=== PATIENT | female | born 1975 | race American Indian/Alaskan Native ===

== ENCOUNTER 2022-04-28 13:04 | Emergency (ER) | payer BC ==
[~2022-04-28] VITALS: Ht 172.7 cm; Wt 84.5 kg
[~2022-04-28 13:04] MED LIST: HYDR-569 PO; ONDA8TAB9 PO
[2022-04-28 14:00] VITALS: BP 102/60
--- NOTE | 2022-04-28 14:00 | NUR ---
Surgical site on R lower quadrant is oozing copious acharya fluid. Area is red and warm.
--- NOTE | 2022-04-28 14:20 | NUR ---
Wound culture and blood culture sent.
[2022-04-28 14:29] LABS: BASOPHILS % (AUTO) 0.6 % (0-1); EOSINOPHILS # (AUTO) 0.1 X10'3 (0-0.9); EOSINOPHILS % (AUTO) 1.2 % (0-6); HEMATOCRIT 23.3 % (35.0-45.0); HEMOGLOBIN 7.8 g/dl (12.0-16.0); LYMPHOCYTES % (AUTO) 13.8 % (21-51); MEAN CORPUSCULAR HEMOGLOBIN 29.4 PG (27.0-31.0); MEAN CORPUSCULAR HGB CONC 33.4 g/dL (33.0-36.5); MEAN CORPUSCULAR VOLUME 87.8 FL (78-98); MONOCYTES # (AUTO) 0.4 X10'3 (0-0.9); MONOCYTES % (AUTO) 5.5 % (2-12); NEUTROPHILS # (AUTO) 5.8 X10'3 (1.8-7.7); NEUTROPHILS % (AUTO) 78.9 % (42-75); PLATELET COUNT 412 X10'3 (140-440); RED BLOOD COUNT 2.65 X10'6 (4.20-5.60); RED CELL DISTRIBUTION WIDTH 14.4 % (11.5-14.5); WHITE BLOOD COUNT 7.3 X10'3 (4.5-11.0)
[2022-04-28 14:40] LABS: ALANINE AMINOTRANSFERASE 18 U/L (12-78); ALBUMIN 2.4 G/DL (3.4-5.0); ALBUMIN/GLOBULIN RATIO 0.6 (1.1-1.5); ALKALINE PHOSPHATASE 77 IU/L (46-116); ANION GAP 5 (8-16); ASPARTATE AMINO TRANSFERASE 15 U/L (10-37); BILIRUBIN,TOTAL 0.3 MG/DL (0.1-1.0); BLOOD UREA NITROGEN 11 MG/DL (7-18); BUN/CREATININE RATIO 19.6 (6.6-38.0); CALCIUM 8.7 MG/DL (8.5-10.1); CHLORIDE 102 MMOL/L (99-107); CREATININE 0.56 MG/DL (0.40-0.90); GLUCOSE 98 MG/DL (70-104); POTASSIUM 3.5 MMOL/L (3.5-5.1); SODIUM 137 MMOL/L (135-145); TOTAL CARBON DIOXIDE 29.8 MMOL/L (24-32); TOTAL PROTEIN 6.4 G/DL (6.4-8.2); eGFR > 90 ML/MIN
[2022-04-28 15:32] LABS: CLARITY,URINE CLEAR (Clear); COLOR,URINE YELLOW (Yellow); GLUCOSE, URINE NEGATIVE (Neg); KETONES,URINE NEGATIVE (Neg); LEUKOCYTE ESTERASE ,URINE NEGATIVE (Neg); NITRITES, URINE NEGATIVE (Neg); OCCULT BLOOD,URINE NEGATIVE (Neg); PH,URINE 7.5 (4.8-8.0); PROTEIN,URINE NEGATIVE (Neg); UROBILINOGEN,URINE 0.2 E.U/dL (0.2-1.0)
--- NOTE | 2022-04-28 15:32 | NUR ---
Pt and her given and understands d/c instructions. IV d/c'd, catheter was intact. Ambulatory with a steady gait.
[2022-04-28 15:39] LABS: UA COLLECTION TYPE CLN CATCH MIDSTREAM
== END 2022-04-28 15:30 | disposition home or self-care (01) ==
LOC: ER 13:04
DX: T81.30XA Disruption of wound, unspecified, initial encounter (principal); D50.9 Iron deficiency anemia, unspecified; R11.10 Vomiting, unspecified; E11.9 Type 2 diabetes mellitus without complications; F41.9 Anxiety disorder, unspecified; F32.A Depression, unspecified; Z90.49 Acquired absence of other specified parts of digestive tract; Z90.710 Acquired absence of both cervix and uterus; Z98.890 Other specified postprocedural states; Z79.899 Other long term (current) drug therapy; Y83.8 Other surgical procedures as the cause of abnormal reaction of the patient, or of later complication, without mention of misadventure at the time of the procedure
CPT/HCPCS: 36415; 71045; 80053; 81003; 83605; 84145; 85025; 87040; 99284; J7030

== ENCOUNTER 2022-06-01 02:16 | Emergency (ER) | payer BC, OTHER ==
[~2022-06-01] VITALS: Ht 167.6 cm; Wt 82.7 kg
[2022-06-01] MEDS: normal saline 1000ML IV soln IVB ONE (02:56)
[2022-06-01 03:03] LABS: BASOPHILS # (AUTO) 0.1 X10'3 (0-0.2); BASOPHILS % (AUTO) 0.9 % (0-1); EOSINOPHILS # (AUTO) 0.3 X10'3 (0-0.9); EOSINOPHILS % (AUTO) 4.2 % (0-6); HEMATOCRIT 29.7 % (35.0-45.0); HEMOGLOBIN 9.3 g/dl (12.0-16.0); LYMPHOCYTES # (AUTO) 2.1 X10'3 (1.1-4.8); LYMPHOCYTES % (AUTO) 34.2 % (21-51); MEAN CORPUSCULAR HGB CONC 31.3 g/dL (33.0-36.5); MEAN CORPUSCULAR VOLUME 79.9 FL (78-98); MEAN PLATELET VOLUME 7.7 FL (7.4-10.4); MONOCYTES # (AUTO) 0.4 X10'3 (0-0.9); MONOCYTES % (AUTO) 5.7 % (2-12); NEUTROPHILS # (AUTO) 3.4 X10'3 (1.8-7.7); PLATELET COUNT 198 X10'3 (140-440); RED BLOOD COUNT 3.71 X10'6 (4.20-5.60); RED CELL DISTRIBUTION WIDTH 16.5 % (11.5-14.5); WHITE BLOOD COUNT 6.2 X10'3 (4.5-11.0)
[2022-06-01 03:19] LABS: ALANINE AMINOTRANSFERASE 18 U/L (12-78); ALBUMIN 3.2 G/DL (3.4-5.0); ALBUMIN/GLOBULIN RATIO 0.9 (1.1-1.5); ALKALINE PHOSPHATASE 129 IU/L (46-116); ANION GAP 10 (8-16); ASPARTATE AMINO TRANSFERASE 23 U/L (10-37); BILIRUBIN,TOTAL 0.2 MG/DL (0.1-1.0); BLOOD UREA NITROGEN 18 MG/DL (7-18); CALCIUM 8.6 MG/DL (8.5-10.1); CHLORIDE 106 MMOL/L (99-107); CREATININE 0.62 MG/DL (0.40-0.90); GLUCOSE 97 MG/DL (70-104); SODIUM 139 MMOL/L (135-145); TOTAL CARBON DIOXIDE 22.7 MMOL/L (24-32); TOTAL PROTEIN 6.6 G/DL (6.4-8.2); eGFR > 90 ML/MIN
[2022-06-01 03:47] VITALS: BP 124/67
== END 2022-06-01 03:59 | disposition home or self-care (01) ==
LOC: ER 02:17
DX: R06.4 Hyperventilation (principal); R55 Syncope and collapse; R53.1 Weakness; R42 Dizziness and giddiness; R51.9 Headache, unspecified; F31.9 Bipolar disorder, unspecified; Z98.890 Other specified postprocedural states
CPT/HCPCS: 36415; 80053; 85025; 93005; 96360; 99284; J7030

== ENCOUNTER 2022-07-21 14:13 | Emergency (ER) | payer BC, OTHER ==
[~2022-07-21] VITALS: Ht 172.7 cm; Wt 80.0 kg
[2022-07-21 14:23] VITALS: BP 137/58
== END 2022-07-21 22:06 | disposition left against medical advice (07) ==
LOC: ER 14:15
DX: H53.8 Other visual disturbances (principal); Z53.21 Procedure and treatment not carried out due to patient leaving prior to being seen by health care provider

== ENCOUNTER 2022-07-23 18:58 | Emergency (ER) | payer OTHER ==
[~2022-07-23] VITALS: Ht 172.7 cm; Wt 84.1 kg
[2022-07-23 20:27] LABS: BASOPHILS % (AUTO) 0.6 % (0-1); EOSINOPHILS # (AUTO) 0.1 X10'3 (0-0.9); EOSINOPHILS % (AUTO) 1.3 % (0-6); HEMATOCRIT 38.5 % (35.0-45.0); LYMPHOCYTES # (AUTO) 1.9 X10'3 (1.1-4.8); LYMPHOCYTES % (AUTO) 27.8 % (21-51); MEAN CORPUSCULAR HEMOGLOBIN 23.6 PG (27.0-31.0); MEAN CORPUSCULAR HGB CONC 31.2 g/dL (33.0-36.5); MEAN CORPUSCULAR VOLUME 75.6 FL (78-98); MEAN PLATELET VOLUME 7.8 FL (7.4-10.4); MONOCYTES # (AUTO) 0.4 X10'3 (0-0.9); MONOCYTES % (AUTO) 5.4 % (2-12); NEUTROPHILS # (AUTO) 4.5 X10'3 (1.8-7.7); NEUTROPHILS % (AUTO) 64.9 % (42-75); PLATELET COUNT 226 X10'3 (140-440); RED CELL DISTRIBUTION WIDTH 19.6 % (11.5-14.5); WHITE BLOOD COUNT 6.9 X10'3 (4.5-11.0)
[2022-07-23 20:39] LABS: ALANINE AMINOTRANSFERASE 22 U/L (12-78); ALBUMIN 4.1 G/DL (3.4-5.0); ALBUMIN/GLOBULIN RATIO 1.1 (1.1-1.5); ALKALINE PHOSPHATASE 118 IU/L (46-116); ANION GAP 5 (8-16); ASPARTATE AMINO TRANSFERASE 19 U/L (10-37); BILIRUBIN,TOTAL 0.2 MG/DL (0.1-1.0); BLOOD UREA NITROGEN 15 MG/DL (7-18); BUN/CREATININE RATIO 25.4 (6.6-38.0); CALCIUM 9.2 MG/DL (8.5-10.1); CHLORIDE 105 MMOL/L (99-107); CREATININE 0.59 MG/DL (0.40-0.90); GLUCOSE 86 MG/DL (70-104); LIPASE 294 U/L (73-393); POTASSIUM 3.8 MMOL/L (3.5-5.1); SODIUM 141 MMOL/L (135-145); TOTAL CARBON DIOXIDE 30.7 MMOL/L (24-32); eGFR > 90 ML/MIN
[2022-07-23 20:42] LABS: ANISOCYTOSIS 2+; MICROCYTOSIS 1+; PLATELET ESTIMATE NORMAL
[2022-07-23 20:43] LABS: ELLIPTOCYTES 1+
[2022-07-23 21:40] LABS: CLARITY,URINE CLEAR (Clear); COLOR,URINE YELLOW (Yellow); GLUCOSE, URINE NEGATIVE (Neg); KETONES,URINE NEGATIVE (Neg); LEUKOCYTE ESTERASE ,URINE NEGATIVE (Neg); NITRITES, URINE NEGATIVE (Neg); OCCULT BLOOD,URINE NEGATIVE (Neg); PROTEIN,URINE NEGATIVE (Neg); UROBILINOGEN,URINE 0.2 E.U/dL (0.2-1.0)
[2022-07-23 21:45] LABS: UA COLLECTION TYPE CLN CATCH MIDSTREAM
[2022-07-23 22:17] VITALS: BP 115/65
== END 2022-07-23 22:19 | disposition home or self-care (01) ==
LOC: ER 18:59
DX: R10.13 Epigastric pain (principal); R11.2 Nausea with vomiting, unspecified; F41.9 Anxiety disorder, unspecified; F32.9 Major depressive disorder, single episode, unspecified; Z90.49 Acquired absence of other specified parts of digestive tract; Z98.890 Other specified postprocedural states; Z90.710 Acquired absence of both cervix and uterus; Z79.899 Other long term (current) drug therapy
CPT/HCPCS: 36415; 74022; 80053; 81003; 83690; 85008; 85025; 99284

== ENCOUNTER 2022-10-18 21:35 | Emergency (ER) | payer OTHER | END 2022-10-18 21:41 | disposition left against medical advice (07) | LOC: ER 21:35 | DX: Z00.8 Encounter for other general examination (principal); Z53.21 Procedure and treatment not carried out due to patient leaving prior to being seen by health care provider ==

== ENCOUNTER 2025-07-02 19:55 | Emergency (ER) | payer BC, OTHER ==
[~2025-07-02] VITALS: Ht 170.2 cm; Wt 81.6 kg
[2025-07-02 20:06] VITALS: BP 110/75; PULSE 77; O2SAT 100
[2025-07-02 20:11] VITALS: RESP 17
[2025-07-02 21:18] LABS: MEAN PLATELET VOLUME 7.5 FL (7.4-10.4); RED CELL DISTRIBUTION WIDTH 13.3 % (11.5-14.5)
[2025-07-02 21:19] LABS: LEUKOCYTE ESTERASE ,URINE NEGATIVE (Neg); NITRITES, URINE NEGATIVE (Neg); OCCULT BLOOD,URINE NEGATIVE (Neg); UA COLLECTION TYPE NON-SPECIFIED
[2025-07-02 21:21] LABS: URINE HCG NEGATIVE (NEG)
[2025-07-02 21:29] LABS: CREATININE 0.64 MG/DL (0.40-0.90); TOTAL CARBON DIOXIDE 30.3 MMOL/L (24-32); eCRCL 103 ML/MIN; eGFR > 90 ML/MIN
--- NOTE | 2025-07-02 22:07 | RADIOLOGY REPORT ---
EXAM: CT CTA ABDOMEN PELVIS HISTORY: lower abd pain, r/o aneurysm COMPARISON STUDY: ACUTE ABDOMEN on DOS: 07/23/22 TECHNIQUE: A digital seed laboratory technician image was obtained. During the uneventful, intravenous administration of contrast material, multislice data acquisition was obtained through the abdomen and pelvis. The data set was subsequently reconstructed into multiplanar reformats. 3D images/MIP were performed and reviewed for reporting. RADIATION DOSE: CTDI vol 21.2 mGy. DLP 1131.2 mGy.cm FINDINGS: Lungs: Dependent atelectatic changes. Liver: Unremarkable. Spleen: Unremarkable. Pancreas: Unremarkable. Gallbladder: Prior cholecystectomy with biliary ductal dilatation measuring up to 13 mm. Adrenals: Unremarkable Kidneys: Unremarkable. Pelvic Viscera: A pessary is seen. Vasculature: Unremarkable. No evidence of aneurysm. No arterial extravasation of contrast to suggest active bleeding. Retroperitoneum: Unremarkable. Bowel: Colonic diverticulosis without CT evidence of diverticulitis. No bowel obstruction. Postsurgical changes of the stomach. Musculoskeletal: Unremarkable. Soft tissues: Unremarkable IMPRESSION: 1. No evidence of aneurysm. 2. Prior cholecystectomy with biliary ductal dilatation, possibly postsurgical, though comparison with any prior outside imaging is suggested in assessing acuity and interval change. If clinically indicated, MRCP may be beneficial in further assessment. 3. Additional findings as detailed.
--- NOTE | 2025-07-02 22:10 | Physician Documentation ---
History of Present Illness Chief Complaint: Abdominal Pain Stated Complaint: ABD PAIN Time Seen by MD: 20:11 Primary Medical Doctor: MARLENY Source: patient Mode of Arrival: POV Exam Limitations: no limitations HPI Reports having diffuse abdominal pain which is worse in the lower quadrants for the past 3-4 days. She feels a strong heart beat type sensation in her abdomen and feels like there is a heavy cement like feeling in the her lower quadrants. She reports last bowel movement was yesterday, reports having constipation. Is taking Mounjaro for diabetes, as well as narcotic pain medication for chronic pain. She reports that the abdominal cramping and pain is intermittent throughout the day. She has not taken any medication for the pain prior to arrival. 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 Denies having any nausea, fevers, vomiting or diarrhea. Medication Reconciliation Allergies: Coded Allergies: No Known Allergies (Unverified , 06/29/22) Scheduled Hydrocodone Bit/Acetaminophen (Notus 5-325 Tablet), 1 EACH PO PRN, (Reported) Ondansetron (Zofran Odt), 4 MG PO QID Past Medical History Past Medical History: Headache, Anxiety, Depression Past Surgical History: abdominal surgery, cholecystectomy, gastric bypass, hysterectomy, other Other Past Surgical History: Abdominoplasty Alcohol Use: None Drug Use: none Occupation: employed Review of Systems All Other Systems at this time: Reviewed and Negative Physical Exam Vital Signs: RN Vital Signs have been reviewed: Yes, Temperature: 99.3, Source: Temporal, Heart Rate: 77, Respiratory Rate: 17, BP: 110/75, Pulse Oximetry: 100, Weight: 81.600 Oxygen Flow Rate: 0 Pulse Oximetry Reflects: adequate oxygenation Physical Exam General: Alert, no apparent distress. HEENT: PERRL, EOMI, no injection, moist mucous membranes. Neck: Full range of motion. Respiratory: Lungs clear, no respiratory distress. Chest: No accessory muscle use. Cardiovascular: Regular rate and rhythm, no murmurs. Gastrointestinal: Soft, nontender, nondistended. Bowels sounds present. No rebound tenderness, no guarding. No pulsatile mass Extremities: Normal range of motion, no deformity. Neurologic: Oriented x4. Psychiatric: Normal mood and affect. Skin: Normal color, warm and dry. No edema, no ecchymosis. Progress Results/Orders Reviewed/noted all lab results: Yes Results/Orders Orders - ALINA CHINO Saline Lock (07/02/25 20:12) Cta Abdomen Pelvis (07/02/25 20:22) Completed Orders - ALINA CHINO Urinalysis, Cult If Indicated (07/02/25 20:12) Hcg, Ur Ql (07/02/25 20:12) Cbc/Diff (07/02/25 20:12) Lipase (07/02/25 20:12) CMP (07/02/25 20:12) Cta Abdomen Pelvis (07/02/25 20:22) Iohexol 350mg/Ml 100ml (Omnipaque 350mg/ (07/02/25 21:32) Vital Signs 07/02/25 07/02/25 20:06 20:11 Temp 99.3 Pulse 77 Resp 18 17 B/P (MAP) 110/75 Pulse Ox 100 O2 Flow Rate 0 Laboratory Tests Test 07/02/25 20:14 07/02/25 20:43 Urine Specimen Description Non-specified Urine Color Yellow Urine Clarity Clear Urine pH 6.0 Urine Specific [place] 1.025 Urine Protein Negative Urine Glucose (UA) Negative Urine Ketones Trace H Urine Occult Blood Negative Urine Nitrite Negative Urine Bilirubin Negative Urine Urobilinogen 0.2 Urine Leukocyte Esterase Negative Urine Culture Indicated Not ind Volume Urine Centrifuged 10 ml Urine HCG, Qualitative Negative Urine Comment White Blood Count 5.6 Red Blood Count 4.16 L Hemoglobin 12.6 Hematocrit 36.9 Mean Corpuscular Volume 88.8 Mean Corpuscular Hemoglobin 30.3 Mean Corpuscular Hemoglobin Concent 34.1 Red Cell Distribution Width 13.3 Platelet Count 220 Mean Platelet Volume 7.5 Neutrophils (%) (Auto) 63.2 Lymphocytes (%) (Auto) 31.3 Monocytes (%) (Auto) 4.2 Eosinophils (%) (Auto) 0.9 Basophils (%) (Auto) 0.4 Neutrophils # (Auto) 3.5 Lymphocytes # (Auto) 1.7 Monocytes # (Auto) 0.2 Eosinophils # (Auto) 0.1 Basophils # (Auto) 0.0 CBC Comment Sodium Level 147 H Potassium Level 3.6 Chloride Level 111 H Carbon Dioxide Level 30.3 Anion Gap 6 L Blood Urea Nitrogen 11 Creatinine 0.64 Estimated GFR/1.73 m2 > 90 BUN/Creatinine Ratio 17.2 Glucose Level 84 Calcium Level 9.1 Total Bilirubin 0.2 Aspartate Amino Transf (AST/SGOT) 29 Alanine Aminotransferase (ALT/SGPT) 53 Alkaline Phosphatase 163 H Total Protein 7.5 Albumin 3.7 Globulin 3.8 Albumin/Globulin Ratio 1.0 L Lipase 80 H Chemistry Comments EKG/XRAY/CT/US/VASC/MRI CT : Impression CTA abdomen and pelvis as interpreted by me shows: No evidence of aneurysm, pessary in vaginal canal. Prior cholecystectomy. Mild biliary ductal dilation 13 mm. Medical Decision Making Additional information obtaine: old records, family Findings Reports feeling a heartbeat sensation in her abdomen as well as some lower abdominal pain. Physical exam is unremarkable, no tenderness to palpation of abdomen, no pulsatile mass felt. Urinalysis is negative for UTI but positive for ketones. She is type 2 diabetic. There is no signs of anemia or leukocyto sis. She is showing some mild dehydration with hypernatremia, increased serum chloride. She is also having slightly elevated lipase and alk-phos which she reports is normal for her due to fatty liver disease. CTA of abdomen and pelvis shows No evidence of aneurysm. Prior cholecystectomy with biliary ductal dilatation, possibly postsurgical, though comparison with any prior outside imaging is suggested in assessing acuity and interval change. If clinically indicated, MRCP may be beneficial in further assessment. Seen as her pain is not in the upper quadrants and is intermittently in the lower quadrants, I discussed these findings with the patient to bring up to her primary care provider but I do not think that this is the cause of her symptoms. I reassured the patient that an aneurysm is not the cause of her symptoms as she was quite worried about this. She does have some constipation as she reports that she does not eat as much food as she used to since she has been starting Mounjaro. She is currently on Mounjaro 7.5 mg weekly and reports having infrequent bowel movements which are hard past. We discussed the importance of increased fiber and increase water in her diet. She is also taking narcotic pain medications but can further cause constipation. We discussed this in detail and she needs to talk to her primary care provider about this as these medications may not be working well for her. Differential Dx:Considerations: Angina/CT, Aortic dissection, Appendicitis, Bowel obstruction, Cholelithasis, Ischemic bowel, Ovarian cyst/torsion, Pancreatitis, Urolithiasis Departure Disposition: HOME / SELF CARE / HOMELESS Impression: Primary Impression: Abdominal pain Additional Impressions: Dehydration Constipation Condition: Stable Discharge Instructions: Abdominal Pain (Nonspecific), Dehydration, Adult Additional Instructions: No evidence of abdominal aneurysm. Increase fiber intake and increase water intake. Return back here for any new or worsening symptoms. Follow up with your primary care provider within the next week Referrals: NO PRIMARY CARE PROVIDER (PCP) Education Educated: Patient, Family Educated regarding: diagnosis, treatment, prognosis, need for follow up Additional Comment Medical Screen Exam This patient recieved a medical screening examination. After reviewing the individual's medical complaints with presenting symptoms and performing an appropriate physical examination, it was determined that no immediate life- threatening emergency medical condition is present. This individual is also not a women having contractions. Signature Scribe Signature: . Attestation: Scribed for Alina hCinop by Alina Dorado NP . 07/03/25 00:28 Parts of this note were created using [employer] voice recognition software program. While efforts were made to correct any mistakes made by this voice recognition software program, nonsensical phrases may remain in this note. In addition, there may be errors and syntax, grammar, content and spelling. ALINA CHINOP Jul 02, 2025 22:10
[2025-07-02 22:27] VITALS: TEMP 99.3
== END 2025-07-02 22:38 | disposition home or self-care (01) ==
LOC: ER 19:55
DX: R10.84 Generalized abdominal pain (principal); E86.0 Dehydration; K59.00 Constipation, unspecified; F41.9 Anxiety disorder, unspecified; F32.A Depression, unspecified; G89.29 Other chronic pain; E11.9 Type 2 diabetes mellitus without complications; Z90.49 Acquired absence of other specified parts of digestive tract; Z90.710 Acquired absence of both cervix and uterus
CPT/HCPCS: 36415; 74174; 80053; 81003; 81025; 83690; 85025; 99285; Q9967